=== PATIENT | female | born 1970 | race Caucasian/White ===

== ENCOUNTER → 2020-01-13 | Outpatient (CLI) | payer OTHER ==
[~2020-01-13] MED LIST: SERT100T PO
[2020-01-13 12:18] LABS: BASOPHILS # (AUTO) 0.02 x10^3/uL (0-0.1); BASOPHILS % (AUTO) 0 % (0-1); EOSINOPHILS # (AUTO) 0.14 x10^3/uL (0-0.4); EOSINOPHILS % (AUTO) 2 % (1-7); LYMPHOCYTES # (AUTO) 1.02 x10^3/uL (1-3.4); LYMPHOCYTES % (AUTO) 16 % (22-44); MD NO; MEAN CORPUSCULAR HEMOGLOBIN 31.7 pg (27.0-34.8); MEAN CORPUSCULAR HGB CONC 33.5 g/dL (32.4-35.8); MEAN CORPUSCULAR VOLUME 94.6 fL (80-100); MEAN PLATELET VOLUME 7.2 fL (7.4-10.4); MONOCYTES % (AUTO) 5 % (2-9); NEUTROPHILS % (AUTO) 77 % (42-75); PLATELET COUNT 314 x10^3/uL (130-400); RED CELL DISTRIBUTION WIDTH 13.2 % (9.6-15.2)
[2020-01-13 12:47] LABS: ALANINE AMINOTRANSFERASE 21 U/L (12-78); ALBUMIN 3.8 g/dL (3.4-5.0); ANION GAP 4 mmol/L (5-15); CALCIUM 9.1 mg/dL (8.5-10.1); CHLORIDE 107 mmol/L (98-107)
[2020-01-13 12:59] LABS: ALKALINE PHOSPHATASE 32 U/L (45-117); BILIRUBIN,TOTAL 0.6 mg/dL (0.2-1.0); CREATININE 0.82 mg/dL (0.55-1.02); TOTAL PROTEIN 7.2 g/dL (6.4-8.2)
== END | disposition home or self-care (01) ==
LOC: STAR 10:53
PROVIDERS: ATTEND Obstetrics & Gynecology
DX: Z01.818 Encounter for other preprocedural examination (principal); N92.5 Other specified irregular menstruation; N85.2 Hypertrophy of uterus
CPT/HCPCS: 36415; 71046; 80053; 84703; 85025

== ENCOUNTER 2020-01-21 16:39 | Day surgery (SDC) | payer OTHER ==
[~2020-01-21] VITALS: Ht 162.6 cm; Wt 60.9 kg
[2020-01-21 11:19] VITALS: BP 103/69
[2020-01-21 11:35] LABS: HCG UR SG 1.023 (1.003-1.030)
[~2020-01-21 16:39] MED LIST changes: +ACETAMINOPHEN 325 MG TABLET PO PRN; +ACETAMINOPHEN 650 MG SUPP PR PRN; +BISACODYL 10 MG SUPP PR PRN; +BUPIVACAINE/PF 0.25% ONE; +CEFAZOLIN 1,000 MG ONE; +DEXAMETHASONE 4 MG/ML, 1ML ONE; +EPINEPHRINE 1 MG/ML, 1ML ONE; +FENTANYL PF 100 MCG/2ML IV PRN; +FENTANYL PF 250 MCG/5ML ONE; +FLUORESCEIN SODIUM 500 MG/5 ML ONE; +GLYCOPYRROLATE 0.2MG/1ML, 5ML ONE; +HYDROmorphone 2 MG/ML, 1ML IVPush PRN; +KETOROLAC 30 MG/1 ML ONE; +LACTATED RINGERS 1,000 ML IV SCH; +LIDOCAINE-MPF 2% ,5ML ONE; +LORazepam 2 MG/ML, 1ML IVPush PRN; +MEPERIDINE/PF 25MG/ML,1ML IVPush PRN; +MEPERIDINE/PF 25MG/ML,1ML ONE; +METHYLENE BLUE 10 MG/ML 10ML ONE; +MIDAZOLAM 1 MG/ML, 2ML ONE; +NEOSTIGMINE 1 MG/ML, 10ML ONE; +ONDANSETRON 2MG/ML, 2ML IV PRN; +ONDANSETRON 2MG/ML, 2ML ONE; +OXYcodone 5 MG/5 ML ORAL.SOL UDC ONE; +OXYcodone 5 MG/5 ML ORAL.SOL UDC PO PRN; +PROPOFOL 10 MG/ML, 20ML ONE; +ROCURONIUM 10MG/ML,5ML ONE
[2020-01-21] MEDS ORDERED: D5%-LACTATED RINGERS 1,000 ML IV SCH (17:00)
[2020-01-21] MEDS ORDERED: OXYcodone 5 MG/5 ML ORAL.SOL UDC PO PRN (17:00)
[2020-01-21] MEDS ORDERED: morphine SULFATE 10 MG/ML, 1ML IV PRN (17:00)
[2020-01-21] MEDS ORDERED: IBUP-1222 PO (18:12)
[2020-01-21] MEDS ORDERED: DOCU-131 PO (18:13)
[2020-01-21] MEDS ORDERED: NITR100C56 PO (18:15)
[2020-01-21] MEDS ORDERED: OXYC-302 PO (18:17)
[2020-01-21 19:54] VITALS: BP 96/63
[2020-01-21] MEDS ORDERED: IBUPROFEN 600 MG TABLET PO SCH (21:00)
[2020-01-21] MEDS ORDERED: DOCUSATE 100 MG CAPSULE PO SCH (21:00)
[2020-01-21] MEDS ORDERED: SIMETHICONE 80 MG CHEW TAB PO SCH (21:00)
[2020-01-21] MEDS ORDERED: SENNA/DOCUSATE TABLET PO SCH (21:00)
[2020-01-21] MEDS ORDERED: ZOLPIDEM 5MG TABLET PO PRN (21:00)
== END 2020-01-21 20:15 | disposition home or self-care (01) ==
LOC: 4NE 16:39 → OUT 16:39 → 4NE 16:40 → UNDOADMIN 16:50 → 4NE 16:50 → UNDODISIN 20:15 → 4NE 20:15
PROVIDERS: ATTEND Obstetrics & Gynecology
DX: N92.0 Excessive and frequent menstruation with regular cycle (principal); N99.71 Accidental puncture and laceration of a genitourinary system organ or structure during a genitourinary system procedure; N73.6 Female pelvic peritoneal adhesions (postinfective); N32.89 Other specified disorders of bladder; N80.0 Endometriosis of uterus; D25.1 Intramural leiomyoma of uterus; Z79.899 Other long term (current) drug therapy; Z87.891 Personal history of nicotine dependence; Z88.8 Allergy status to other drugs, medicaments and biological substances; Z97.5 Presence of (intrauterine) contraceptive device; Z98.890 Other specified postprocedural states; Z98.891 History of uterine scar from previous surgery
CPT/HCPCS: 36415; 58552; 81025; 86850; 86900; 88307; J0171; J0690; J1100; J1885; J2175; J2250; J2405; J2704; J2710; J3010; J3490; J7120; Q9968; G0378

== ENCOUNTER → 2020-02-01 | Outpatient (CLI) | payer OTHER ==
[~2020-02-01] MED LIST changes: -ACETAMINOPHEN 325 MG TABLET PO PRN; -ACETAMINOPHEN 650 MG SUPP PR PRN; -BISACODYL 10 MG SUPP PR PRN; -BUPIVACAINE/PF 0.25% ONE; -CEFAZOLIN 1,000 MG ONE; +CYSTO CONRAY II 250 ML VIAL UR ONE; -DEXAMETHASONE 4 MG/ML, 1ML ONE; +DOCU-131 PO; -EPINEPHRINE 1 MG/ML, 1ML ONE; -FENTANYL PF 100 MCG/2ML IV PRN; -FENTANYL PF 250 MCG/5ML ONE; -FLUORESCEIN SODIUM 500 MG/5 ML ONE; -GLYCOPYRROLATE 0.2MG/1ML, 5ML ONE; -HYDROmorphone 2 MG/ML, 1ML IVPush PRN; +IBUP-1222 PO; -KETOROLAC 30 MG/1 ML ONE; -LACTATED RINGERS 1,000 ML IV SCH; -LIDOCAINE-MPF 2% ,5ML ONE; -LORazepam 2 MG/ML, 1ML IVPush PRN; -MEPERIDINE/PF 25MG/ML,1ML IVPush PRN; -MEPERIDINE/PF 25MG/ML,1ML ONE; -METHYLENE BLUE 10 MG/ML 10ML ONE; -MIDAZOLAM 1 MG/ML, 2ML ONE; -NEOSTIGMINE 1 MG/ML, 10ML ONE; +NITR100C56 PO; -ONDANSETRON 2MG/ML, 2ML IV PRN; -ONDANSETRON 2MG/ML, 2ML ONE; +OXYC-302 PO; -OXYcodone 5 MG/5 ML ORAL.SOL UDC ONE; -OXYcodone 5 MG/5 ML ORAL.SOL UDC PO PRN; -PROPOFOL 10 MG/ML, 20ML ONE; -ROCURONIUM 10MG/ML,5ML ONE
== END | disposition home or self-care (01) ==
LOC: RAD 13:08
PROVIDERS: ATTEND Obstetrics & Gynecology
DX: Z93.50 Unspecified cystostomy status (principal)
CPT/HCPCS: 74430; Q9958